=== PATIENT | female | born 1950 | race Caucasian/White ===

== ENCOUNTER → 2016-12-30 | Outpatient (CLI) | payer OTHER, MEDICARE ==
[2016-12-30 11:16] LABS: CHOL/HDL RATIO 6.84 RATIO (0-4.0); LDL CHOLESTEROL,CALCULATED 196.8 mg/dL; SERUM ALBUMIN 4.3 g/dL (3.5-4.8)
[2016-12-30 11:17] LABS: HEMOGLOBIN A1C 5.65 % (4.2-6.0)
[2016-12-30 11:42] LABS: CREATININE, URINE 36.4 MG/DL (15-500)
== END ==
LOC: LAB 10:49
PROVIDERS: ATTEND Internal Medicine
DX: E11.9 Type 2 diabetes mellitus without complications (principal); E78.5 Hyperlipidemia, unspecified
CPT/HCPCS: 36415; 80053; 80061; 82043; 82550; 83036

== ENCOUNTER → 2017-04-07 | Outpatient (CLI) | payer OTHER, MEDICARE ==
[2017-04-07 07:58] LABS: BLOOD UREA NITROGEN 11 mg/dL (7-22); BUN/CREATININE RATIO 12.22 (6-20); CALCIUM 9.7 mg/dL (8.7-10.7); CHOL/HDL RATIO 9.25 RATIO (0-4.0); EST GLOMERULAR FILTRATION > 60 (>60 ml/min/1.73m(2)); HDL CHOLESTEROL 31 mg/dL (40-150); SERUM ALBUMIN 4.1 g/dL (3.5-4.8); SERUM CHOLESTEROL 287 mg/dL (120-200)
[2017-04-07 08:01] LABS: HEMOGLOBIN A1C 7.05 % (4.2-6.0)
[2017-04-07 08:14] LABS: CREATININE, URINE 237.8 MG/DL (15-500)
== END ==
LOC: LAB 07:29
PROVIDERS: ATTEND Internal Medicine
DX: E11.9 Type 2 diabetes mellitus without complications (principal); E78.5 Hyperlipidemia, unspecified
CPT/HCPCS: 36415; 80053; 80061; 82043; 82550; 83036